=== PATIENT | female | born 1945 | race Caucasian/White ===

== ENCOUNTER → 2020-10-25 | Outpatient (CLI) | payer MEDICARE, OTHER | END | disposition home or self-care (01) | LOC: RAD 09:56 | DX: H54.7 Unspecified visual loss (principal) | CPT/HCPCS: 95816 ==

== ENCOUNTER 2022-05-15 16:10 | Emergency (ER) | payer MEDICARE, OTHER ==
[~2022-05-15] VITALS: Ht 170.2 cm; Wt 88.4 kg
[2022-05-15 16:15] VITALS: BP 113/55
[2022-05-15] MEDS ORDERED: TRAM50TA2 PO (17:44)
[2022-05-15] MEDS ORDERED: TRAZ-251 PO (17:44)
[2022-05-15 17:49] LABS: BASOPHILS # (AUTO) 0.1 X10'3 (0-0.2); BASOPHILS % (AUTO) 0.8 % (0-1); EOSINOPHILS # (AUTO) 0.2 X10'3 (0-0.9); EOSINOPHILS % (AUTO) 2.1 % (0-6); HEMATOCRIT 41.1 % (35.0-45.0); HEMOGLOBIN 13.6 g/dl (12.0-16.0); LYMPHOCYTES # (AUTO) 2.9 X10'3 (1.1-4.8); LYMPHOCYTES % (AUTO) 36.4 % (21-51); MEAN CORPUSCULAR HEMOGLOBIN 29.2 PG (27.0-31.0); MEAN CORPUSCULAR HGB CONC 33.1 g/dL (33.0-36.5); MEAN PLATELET VOLUME 7.2 FL (7.4-10.4); MONOCYTES # (AUTO) 0.5 X10'3 (0-0.9); NEUTROPHILS # (AUTO) 4.3 X10'3 (1.8-7.7); NEUTROPHILS % (AUTO) 54.7 % (42-75); PLATELET COUNT 434 X10'3 (140-440); RED BLOOD COUNT 4.68 X10'6 (4.20-5.60); RED CELL DISTRIBUTION WIDTH 15.2 % (11.5-14.5); WHITE BLOOD COUNT 7.9 X10'3 (4.5-11.0)
[2022-05-15] MEDS ORDERED: ESCI-8 PO (17:59)
[2022-05-15] MEDS ORDERED: METO-395 PO (17:59)
[2022-05-15] MEDS ORDERED: DICL50TA14 PO (17:59)
[2022-05-15] MEDS ORDERED: AMLO5TAB16 PO (17:59)
[2022-05-15] MEDS ORDERED: FLEC100T PO (17:59)
[2022-05-15 18:03] LABS: ALANINE AMINOTRANSFERASE 24 U/L (12-78); ALBUMIN 3.1 G/DL (3.4-5.0); ALBUMIN/GLOBULIN RATIO 0.8 (1.1-1.5); ANION GAP 9 (8-16); ASPARTATE AMINO TRANSFERASE 12 U/L (10-37); BILIRUBIN,TOTAL 0.2 MG/DL (0.1-1.0); BLOOD UREA NITROGEN 11 MG/DL (7-18); BUN/CREATININE RATIO 14.9 (6.6-38.0); CALCIUM 8.8 MG/DL (8.5-10.1); CHLORIDE 108 MMOL/L (99-107); CREATININE 0.74 MG/DL (0.40-0.90); GLUCOSE 100 MG/DL (70-104); POTASSIUM 3.9 MMOL/L (3.5-5.1); SODIUM 143 MMOL/L (135-145); TOTAL CARBON DIOXIDE 26.2 MMOL/L (24-32); TOTAL PROTEIN 6.8 G/DL (6.4-8.2); eGFR 77 ML/MIN
[2022-05-15 18:06] LABS: ALKALINE PHOSPHATASE 122 IU/L (46-116)
[2022-05-18] MEDS ORDERED: CIPR-202 PO (12:52)
[2022-05-18] MEDS ORDERED: METR-159 PO (12:52)
[2022-05-19] MEDS ORDERED: LORA-269 PO (10:27)
== END 2022-05-15 18:03 | disposition left against medical advice (07) ==
LOC: ER 16:11
DX: K65.1 Peritoneal abscess (principal); F31.9 Bipolar disorder, unspecified; Z79.899 Other long term (current) drug therapy; Z79.2 Long term (current) use of antibiotics
CPT/HCPCS: 36415; 71045; 80053; 85025; 99285